=== PATIENT | male | born 1970 | race Caucasian/White ===

== ENCOUNTER 2019-05-20 10:16 | Emergency (ER) | payer OTHER ==
[~2019-05-20] VITALS: Ht 182.8 cm; Wt 113.4 kg
== END 2019-05-20 13:02 | disposition left against medical advice (07) ==
LOC: ED 10:16
DX: H57.89 Other specified disorders of eye and adnexa (principal); Z53.21 Procedure and treatment not carried out due to patient leaving prior to being seen by health care provider